=== PATIENT | female | born 1960 | race Caucasian/White ===

== ENCOUNTER 2023-01-12 15:54 | Outpatient (CLI) | payer OTHER ==
[2023-01-12 16:32] LABS: INR-International Normal Ratio 1.5; Prothrombin Time 18.2 sec (12.0-14.7)
[2023-01-12 16:39] LABS: ALT (SGPT) 47 U/L (8-55); AST (SGOT) 66 U/L (5-34); Albumin 3.4 g/dL (3.4-4.8); Alkaline Phosphatase 120 U/L (40-110); Anion Gap 15 mmol/L (10-20); BUN (Urea Nitrogen) 21 mg/dL (9.8-20.1); Bilirubin, Total 2.2 mg/dL (0.2-1.2); Calc. Creatinine Clearance 0 mL/min (70-130); Calcium 9.2 mg/dL (7.8-10.44); Carbon Dioxide 21 mmol/L (23-31); Chloride 106 mmol/L (98-107); Estimated GFR 54; Globulin 3.3 g/dL (2.4-3.5); Glucose 174 mg/dL (80-115); Potassium 4.9 mmol/L (3.5-5.1); Protein, Total 6.7 g/dL (5.8-8.1); Sodium 137 mmol/L (136-145)
== END 2023-01-12 15:55 | disposition home or self-care (01) ==
LOC: NAV RAD 15:54
PROVIDERS: ATTEND Family Medicine
DX: Z02.71 Encounter for disability determination (principal); E11.42 Type 2 diabetes mellitus with diabetic polyneuropathy; Z86.16 Personal history of COVID-19
CPT/HCPCS: 36415; 71046; 80053; 85610